=== PATIENT | female | born 1955 | race African-American/Black ===

== ENCOUNTER 2018-08-28 13:54 | Inpatient (IN) ==
[2018-08-28] MEDS ORDERED: methylPREDNISolone 125 MG/2 ML VIAL IVP ONE (14:01)
[2018-08-28] MEDS ORDERED: Ipratropium/Albuterol Neb 3 ML IH ONE (14:01)
--- NOTE | 2018-08-28 14:22 | Emergency Department Note ---
Disposition Clinical Impression: COPD exacerbation, Flash pulmonary edema, Pleural effusion Disposition: Admitted As Inpatient Condition: Good Forms: ED Satisfaction Letter SOB HPI - General Chief Complaint: ED Shortness of Breath/Dyspnea Stated Complaint: KIMBERLY Time Seen by Provider: 08/28/18 14:04 Source: EMS Mode of arrival: EMS Limitations: no limitations Nursing Notes Reviewed: Yes Vital Signs Reviewed: Yes - History of Present Illness 63-year-old female history of oxygen-dependent COPD wears 2 L continuously who presents to the ER via EMS from urgent care with a complaint of shortness of breath. The patient states she was seen at urgent care Wednesday before last and was diagnosed with bronchitis. She was given a course of doxycycline which she finished. States she never really improved and started to feel worse. She denies any chest pain. She reports some abdominal pain around the epigastric area that radiates in all directions. States that she has had that for months but it feels a little bit worse. She denies a prior history of CAD, DVT or PE. She denies a productive cough at this time although was initially productive week ago. The patient was given 1 DuoNeb treatment in route. She was initially 86% on her home oxygen supplementation. Pt Subjective Complaint: shortness of breath, cough Onset (ago): day(s) Context: recent illness Severity: severe Consistency/Duration: constant Improves with: nothing Worsens with: nothing Known history of: COPD Associated symptoms: Reports: cough, wheezing, abdominal pain. Denies: chest pain, fever, sputum production Treatment prior to arrival: oxygen, bronchodilator Cough present: Yes Cough Description: Involuntary Cough Frequency: Intermittent Sputum production: No Sputum Amount: None - Related Data Home oxygen amount: 2 liters Home Medications Medication Instructions Recorded Confirmed Atorvastatin Calcium [Lipitor] 80 mg PO DAILY 08/31/16 08/31/16 Insulin ASPART [NovoLOG] 5 unit SQ TIDWM 08/31/16 08/31/16 Ipratropium/Albuterol Neb [Duoneb] 3 ml IH Q6HR 08/31/16 08/31/16 Lisinopril-HCTZ 20-12.5 [Prinzide 1 tab PO DAILY 08/31/16 08/31/16 20-12.5] Metformin HCl [Glucophage Xr] 1,500 mg PO QPM 08/31/16 08/31/16 Dapagliflozin Propanediol [Farxiga] 08/28/18 Gabapentin [Neurontin] 300 mg PO TID 08/28/18 08/28/18 HYDROcodone/Acet 5/325 mg [[place] 1 tab PO Q12H PRN 08/28/18 08/28/18 5-325 mg] Insulin DETEMIR [Levemir Flextouch] 08/28/18 Lisinopril-HCTZ 20-12.5 [Prinzide 08/28/18 20-12.5] Umeclidinium Brm/Vilanterol Tr 1 each IH 08/28/18 [Anoro Ellipta 62.5-25 Mcg INH] amLODIPine [Norvasc] 5 mg PO DAILY 08/28/18 08/28/18 Previous Rx's Medication Instructions Recorded Erythromycin OPTH Oint 0.5 inch RIGHT EYE QID 7 Days tube 04/30/17 Loratadine [Allergy Relief] 10 mg PO DAILY #30 tablet 08/09/17 Albuterol Neb [Proventil Neb] 2.5 mg IH Q4HR PRN #12 vial.neb 10/08/17 Omeprazole [PriLOSEC] 40 mg PO DAILY #14 cap 04/27/18 Benzonatate [Tessalon] 200 mg PO TID PRN #30 capsule 08/19/18 Doxycycline 100 mg PO BID #14 capsule 08/19/18 GuaiFENesin ER [Mucinex] 1,200 mg PO BID #20 tbbp.12hr 08/19/18 Allergies Allergy/AdvReac Type Severity Reaction Status Date / Time cephalexin [From Keflex] Allergy Rash Verified 08/19/18 15:48 ciprofloxacin Allergy Itching Verified 08/19/18 15:48 ibuprofen Allergy See Verified 08/19/18 15:48 Comments Penicillins Allergy Rash Verified 08/19/18 15:48 tetanus and diphtheria Allergy Rash Verified 08/19/18 15:48 toxoids [Tetanus&Diphtheria Toxoid] levofloxacin [From Levaquin] AdvReac See Verified 08/19/18 15:48 Comments All systems ED: reviewed and negative except as stated. Constitutional: Denies: fever, chills Cardiovascular: Denies: chest pain Respiratory: Reports: cough, dyspnea. Denies: sputum production Gastrointestinal: Denies: abdominal pain, nausea, vomiting Past Medical History - Past Medical History Attestation: Yes The following information was validated with the patient. 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 - Social History Smoking Status: Never smoker Smokeless Tobacco Status: No Alcohol use: Reports: none Drug use: Reports: none Physical Exam - General Limitations: no limitations General appearance: alert, in no apparent distress - Head Head exam: atraumatic, normocephalic, normal inspection - Eye Eye exam: Present: normal appearance - ENT ENT exam: normal exam - Neck Neck exam: Present: normal inspection - Chest Chest inspection: Present: normal inspection, symmetric chest wall rise - Respiratory Respiratory exam: Present: respiratory distress, wheezes (Diffuse), accessory muscle use, prolonged expiratory phase - Cardiovascular Cardiovascular exam: Present: normal rhythm, tachycardia, normal heart sounds - Abdominal Exam Abdominal exam: Present: soft, tenderness (Mild diffuse abdominal tenderness). Absent: distention, rigidity - Extremities Exam Extremities exam: Present: normal inspection, full ROM - Expanded Upper Extremity Exam Shoulder exam: Present: normal inspection, full ROM Arm exam: Present: normal inspection, full ROM Elbow exam: Present: normal inspection, full ROM Forearm/Wrist exam: Present: normal inspection, full ROM Hand exam: Present: normal inspection, full ROM - Expanded Lower Extremity Exam Hip/Pelvis exam: Present: normal inspection, full ROM Upper leg exam: Present: normal inspection, full ROM Knee exam: Present: normal inspection, full ROM Lower leg exam: Present: normal inspection, full ROM Ankle exam: Present: normal inspection, full ROM Foot/toe exam: Present: normal inspection, full ROM - Skin Skin exam: Present: warm, dry Course Course Narrative: Patient seen and examined. Vital signs reviewed. She is in significant respiratory distress. She is 84% on 2 L. The patient was increased to 4 L with an appropriate response. She has diffuse wheezing. Plan for continue DuoNeb treatments, steroids, EKG, chest x-ray, labs, likely admission for COPD exacerbation. - Reevaluation(s) Reevaluation #1: CTA was obtained given concern for potential PE. This appears negative with evidence of effusions. This was discussed with the patient as well as labs. She appears remarkably better at this time speaking in full sentences. Agreeable with admission. Vital Signs Temperature 98.1 F 08/28/18 13:56 Pulse Rate 100 08/28/18 13:56 Respiratory Rate 24 08/28/18 13:56 Blood Pressure 219/95 08/28/18 13:56 O2 Sat by Pulse Oximetry 92 08/28/18 13:56 Temperature 98.1 F 08/28/18 13:56 Pulse Rate 100 08/28/18 13:56 Respiratory Rate 19 08/28/18 14:20 Blood Pressure 219/95 08/28/18 13:56 O2 Sat by Pulse Oximetry 97 08/28/18 14:20 Oxygen Delivery Oxygen Delivery Nasal Cannula Shortness of Breath/Dyspnea - MDM Narrative Medical decision making narrative: 63-year-old female with history of COPD presents due to worsening shortness of breath and hypoxia found to have COPD exacerbation with bilateral pleural effusions. Differential for this includes early congestive heart failure, pulmonary hypertension or flash pulmonary edema. Her hypertension improved here without intervention. Her EKG is sinus without ischemic findings. CTA is negative for PE. Labs are grossly unremarkable. The patient responded well to DuoNeb treatments and steroids. She was given a dose of Lasix for her pleural effusions as well as Zithromax for COPD exacerbation. She is admitted to the hospitalist for further management. - Lab Data Lab results reviewed: Yes I reviewed the patient's lab results. Result diagrams: 08/28/18 14:06 08/28/18 14:06 Lab Results 08/28/18 08/28/18 08/28/18 Range/Units 14:06 14:06 14:06 WBC 7.5 (4.3-11.1) K/mcL RBC 4.20 (3.82-4.97) M/mcL Hgb 11.0 L (11.5-15.4) g/dL Hct 37.7 (35.3-44.9) % MCV 89.8 (83.0-100.0) fL MCH 26.2 L (28.0-33.3) pg MCHC 29.2 L (31.6-35.5) g/dL RDW 14.6 H (11.5-14.5) % Plt Count 234 (140-400) K/mcL MPV 8.5 L (9.4-12.4) fL Immature Gran % 0.8 (0-4) % Seg Neutrophils % 69.1 % Lymphocytes % 23.5 % Monocytes % 5.2 % Eosinophils % 1.1 % Basophils % 0.3 % Neutrophils # 5.2 (1.6-8.9) K/mcL Lymphocytes # 1.8 (0.6-4.6) K/mcL Monocytes # 0.4 (0.0-1.3) K/mcL Eosinophils # 0.1 (0.0-0.6) K/mcL Basophils # 0.0 (0.0-0.2) K/mcL Platelet Estimate Normal (Normal) Hypochromasia Present A (Not Present) PT 12.3 H (9.4-12.1) Seconds INR 1.1 Sodium 139 (136-145) mEq/L Potassium 4.0 (3.5-5.1) mEq/L Chloride 99 (98-107) mEq/L Carbon Dioxide 32 H (23-29) mEq/L BUN 15 (8-23) mg/dL Creatinine 0.57 L (0.60-1.20) mg/dL Est GFR ( Amer) > 60 (> 60) Est GFR (Non-Af Amer) > 60 (> 60) BUN/Creatinine Ratio 26 (6-26) Glucose 226 H (70-105) mg/dL Calculated Osmolality 296 (280-300) Lactic Acid (0.5-2.2) mmol/L Calcium 9.5 (8.6-10.3) mg/dL Total Bilirubin 0.3 (0.3-1.0) mg/dL Direct Bilirubin 0.1 (0.0-0.2) mg/dL Indirect Bilirubin 0.2 (0.0-1.2) mg/dL AST 28 (13-39) Units/L ALT 30 (7-52) Units/L Alkaline Phosphatase 158 H (34-104) Units/L Troponin I < 0.03 (< 0.04) ng/mL B-Natriuretic Peptide (Less than 100) pg/mL Serum Total Protein 7.2 (6.4-8.9) g/dL Albumin 3.9 (3.5-5.7) g/dL Globulin 3.3 (2.4-3.5) g/dL Albumin/Globulin Ratio 1.2 (1.1-2.2) Lipase 24 (11-82) Units/L 08/28/18 08/28/18 Range/Units 14:06 14:06 WBC (4.3-11.1) K/mcL RBC (3.82-4.97) M/mcL Hgb (11.5-15.4) g/dL Hct (35.3-44.9) % MCV (83.0-100.0) fL MCH (28.0-33.3) pg MCHC (31.6-35.5) g/dL RDW (11.5-14.5) % Plt Count (140-400) K/mcL MPV (9.4-12.4) fL Immature Gran % (0-4) % Seg Neutrophils % % Lymphocytes % % Monocytes % % Eosinophils % % Basophils % % Neutrophils # (1.6-8.9) K/mcL Lymphocytes # (0.6-4.6) K/mcL Monocytes # (0.0-1.3) K/mcL Eosinophils # (0.0-0.6) K/mcL Basophils # (0.0-0.2) K/mcL Platelet Estimate (Normal) Hypochromasia (Not Present) PT (9.4-12.1) Seconds INR Sodium (136-145) mEq/L Potassium (3.5-5.1) mEq/L Chloride (98-107) mEq/L Carbon Dioxide (23-29) mEq/L BUN (8-23) mg/dL Creatinine (0.60-1.20) mg/dL Est GFR ( Amer) (> 60) Est GFR (Non-Af Amer) (> 60) BUN/Creatinine Ratio (6-26) Glucose (70-105) mg/dL Calculated Osmolality (280-300) Lactic Acid 1.8 (0.5-2.2) mmol/L Calcium (8.6-10.3) mg/dL Total Bilirubin (0.3-1.0) mg/dL Direct Bilirubin (0.0-0.2) mg/dL Indirect Bilirubin (0.0-1.2) mg/dL AST (13-39) Units/L ALT (7-52) Units/L Alkaline Phosphatase (34-104) Units/L Troponin I (< 0.04) ng/mL B-Natriuretic Peptide 44 (Less than 100) pg/mL Serum Total Protein (6.4-8.9) g/dL Albumin (3.5-5.7) g/dL Globulin (2.4-3.5) g/dL Albumin/Globulin Ratio (1.1-2.2) Lipase (11-82) Units/L - Radiology Data Radiology results reviewed: Yes I reviewed the patient's radiology results. Chest X-Ray 08/28/18 14:01 IMPRESSION: CHF with interstitial pulmonary edema D/ / Brian Smuner MD / Brian Sumner MD Interpreting Provider: Brian Sumner MD Chest CTA 08/28/18 15:31 IMPRESSION: 1. No acute pulmonary embolism. 2. Interstitial edema with small pleural effusions. D/ / Simeon Soriano MD / Simeon Soriano MD Interpreting Provider: Simeon Soriano MD - EKG Data EKG attestation: Yes I reviewed and interpreted this EKG. EKG results narrative: EKG demonstrates sinus tachycardia with a rate of 100. Normal axis. Normal intervals. Normal R-wave progression. No gross ST elevations or depressions. No acute ischemic findings. No significant changes from previous EKG dated . S.B.AJewell - Nirali.Santy.Pilo Situation: Demographics, MOA Background: Presenting Complaint, Relevant PMH, Meds, & Allergies Assessment: Vital Signs, Course and respsone to treatment, Exam Concerns, Patient/Family Expectation, Pertinant Lab Results Recommendation: Barrier(s) to disposition, Recommendation based on pending studies, treatments, or consults S.BClaudio Report Given to: Dr. Carri Ferro Repor Time: 16:50
--- NOTE | 2018-08-28 14:50 | Emergency Department Note ---
Disposition Clinical Impression: COPD exacerbation, Flash pulmonary edema, Pleural effusion Disposition: Admitted As Inpatient Condition: Good General Adult HPI - General Chief complaint: ED Shortness of Breath/Dyspnea Stated complaint: KIMBERLY Time Seen by Provider: 08/28/18 14:04 Source: EMS Mode of arrival: EMS Limitations: no limitations - History of Present Illness Pain Scale: 0 - Related Data Home Medications Medication Instructions Recorded Confirmed Atorvastatin Calcium [Lipitor] 80 mg PO DAILY 08/31/16 08/28/18 Insulin ASPART [NovoLOG] 18 - 22 unit SQ TIDWM 08/31/16 08/28/18 Ipratropium/Albuterol Neb [Duoneb] 3 ml IH Q6HR PRN 08/31/16 08/28/18 Lisinopril-HCTZ 20-12.5 [Prinzide 1 tab PO DAILY 08/31/16 08/28/18 20-12.5] Metformin HCl [Glucophage Xr] 1,500 mg PO QPM 08/31/16 08/28/18 HYDROcodone/Acet 5/325 mg [[place] 1 tab PO Q12H PRN 08/28/18 08/28/18 5-325 mg] Insulin DETEMIR [Levemir Flextouch] 62 unit SQ BID 08/28/18 08/28/18 Umeclidinium Brm/Vilanterol Tr 1 puff IH DAILY 08/28/18 08/28/18 [Anoro Ellipta 62.5-25 Mcg INH] amLODIPine [Norvasc] 5 mg PO DAILY 08/28/18 08/28/18 Previous Rx's Medication Instructions Recorded Loratadine [Allergy Relief] 10 mg PO DAILY #30 tablet 08/09/17 Omeprazole [PriLOSEC] 40 mg PO DAILY #14 cap 04/27/18 Benzonatate [Tessalon] 200 mg PO TID PRN #30 capsule 08/19/18 GuaiFENesin ER [Mucinex] 1,200 mg PO BID #20 tbbp.12hr 08/19/18 Allergies Allergy/AdvReac Type Severity Reaction Status Date / Time cephalexin [From Keflex] Allergy Rash Verified 08/19/18 15:48 ciprofloxacin Allergy Itching Verified 08/19/18 15:48 ibuprofen Allergy See Verified 08/19/18 15:48 Comments Penicillins Allergy Rash Verified 08/19/18 15:48 tetanus and diphtheria Allergy Rash Verified 08/19/18 15:48 toxoids [Tetanus&Diphtheria Toxoid] levofloxacin [From Levaquin] AdvReac See Verified 08/19/18 15:48 Comments Constitutional: Denies: fever, chills Cardiovascular: Denies: chest pain Respiratory: Reports: cough, dyspnea. 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 - Social History Smoking Status: Never smoker Smokeless Tobacco Status: No Alcohol use: Reports: none Drug use: Reports: none Physical Exam - General Limitations: no limitations General appearance: alert, in no apparent distress Course Vital Signs Temperature 98.1 F 08/28/18 13:56 Pulse Rate 100 08/28/18 13:56 Respiratory Rate 24 08/28/18 13:56 Blood Pressure 219/95 08/28/18 13:56 O2 Sat by Pulse Oximetry 92 08/28/18 13:56 Temperature 98.1 F 08/28/18 13:56 Pulse Rate 96 08/28/18 17:08 Respiratory Rate 18 08/28/18 17:08 Blood Pressure 192/80 08/28/18 17:08 O2 Sat by Pulse Oximetry 92 08/28/18 17:08 Oxygen Delivery Oxygen Delivery Nasal Cannula Medical Decision Making - Lab Data Result diagrams: 08/28/18 14:06 08/28/18 14:06 Lab Results 08/28/18 08/28/18 08/28/18 Range/Units 14:06 14:06 14:06 WBC 7.5 (4.3-11.1) K/mcL RBC 4.20 (3.82-4.97) M/mcL Hgb 11.0 L (11.5-15.4) g/dL Hct 37.7 (35.3-44.9) % MCV 89.8 (83.0-100.0) fL MCH 26.2 L (28.0-33.3) pg MCHC 29.2 L (31.6-35.5) g/dL RDW 14.6 H (11.5-14.5) % Plt Count 234 (140-400) K/mcL MPV 8.5 L (9.4-12.4) fL Immature Gran % 0.8 (0-4) % Seg Neutrophils % 69.1 % Lymphocytes % 23.5 % Monocytes % 5.2 % Eosinophils % 1.1 % Basophils % 0.3 % Neutrophils # 5.2 (1.6-8.9) K/mcL Lymphocytes # 1.8 (0.6-4.6) K/mcL Monocytes # 0.4 (0.0-1.3) K/mcL Eosinophils # 0.1 (0.0-0.6) K/mcL Basophils # 0.0 (0.0-0.2) K/mcL Platelet Estimate Normal (Normal) Hypochromasia Present A (Not Present) PT 12.3 H (9.4-12.1) Seconds INR 1.1 Sodium 139 (136-145) mEq/L Potassium 4.0 (3.5-5.1) mEq/L Chloride 99 (98-107) mEq/L Carbon Dioxide 32 H (23-29) mEq/L BUN 15 (8-23) mg/dL Creatinine 0.57 L (0.60-1.20) mg/dL Est GFR ( Amer) > 60 (> 60) Est GFR (Non-Af Amer) > 60 (> 60) BUN/Creatinine Ratio 26 (6-26) Glucose 226 H (70-105) mg/dL Calculated Osmolality 296 (280-300) Lactic Acid (0.5-2.2) mmol/L Calcium 9.5 (8.6-10.3) mg/dL Total Bilirubin 0.3 (0.3-1.0) mg/dL Direct Bilirubin 0.1 (0.0-0.2) mg/dL Indirect Bilirubin 0.2 (0.0-1.2) mg/dL AST 28 (13-39) Units/L ALT 30 (7-52) Units/L Alkaline Phosphatase 158 H (34-104) Units/L Troponin I < 0.03 (< 0.04) ng/mL B-Natriuretic Peptide (Less than 100) pg/mL Serum Total Protein 7.2 (6.4-8.9) g/dL Albumin 3.9 (3.5-5.7) g/dL Globulin 3.3 (2.4-3.5) g/dL Albumin/Globulin Ratio 1.2 (1.1-2.2) Lipase 24 (11-82) Units/L 08/28/18 08/28/18 Range/Units 14:06 14:06 WBC (4.3-11.1) K/mcL RBC (3.82-4.97) M/mcL Hgb (11.5-15.4) g/dL Hct (35.3-44.9) % MCV (83.0-100.0) fL MCH (28.0-33.3) pg MCHC (31.6-35.5) g/dL RDW (11.5-14.5) % Plt Count (140-400) K/mcL MPV (9.4-12.4) fL Immature Gran % (0-4) % Seg Neutrophils % % Lymphocytes % % Monocytes % % Eosinophils % % Basophils % % Neutrophils # (1.6-8.9) K/mcL Lymphocytes # (0.6-4.6) K/mcL Monocytes # (0.0-1.3) K/mcL Eosinophils # (0.0-0.6) K/mcL Basophils # (0.0-0.2) K/mcL Platelet Estimate (Normal) Hypochromasia (Not Present) PT (9.4-12.1) Seconds INR Sodium (136-145) mEq/L Potassium (3.5-5.1) mEq/L Chloride (98-107) mEq/L Carbon Dioxide (23-29) mEq/L BUN (8-23) mg/dL Creatinine (0.60-1.20) mg/dL Est GFR ( Amer) (> 60) Est GFR (Non-Af Amer) (> 60) BUN/Creatinine Ratio (6-26) Glucose (70-105) mg/dL Calculated Osmolality (280-300) Lactic Acid 1.8 (0.5-2.2) mmol/L Calcium (8.6-10.3) mg/dL Total Bilirubin (0.3-1.0) mg/dL Direct Bilirubin (0.0-0.2) mg/dL Indirect Bilirubin (0.0-1.2) mg/dL AST (13-39) Units/L ALT (7-52) Units/L Alkaline Phosphatase (34-104) Units/L Troponin I (< 0.04) ng/mL B-Natriuretic Peptide 44 (Less than 100) pg/mL Serum Total Protein (6.4-8.9) g/dL Albumin (3.5-5.7) g/dL Globulin (2.4-3.5) g/dL Albumin/Globulin Ratio (1.1-2.2) Lipase (11-82) Units/L Attestation Statement - Attestation Attestation: Resident Attestation: I examined this patient and my medical decision making was reviewed with the Resident Physician. I agree with the documented findings, disposition and treatment plan as described except to the extent set forth below. We independently had [id number] contact with the patient. Resident Dr. Esquivel. Patient with past medical history of COPD, diabetes, hypertension presenting to [facility] for evaluation of shortness of breath. Patient received 1 breathing treatment by EMS and states this did improve her overall symptoms. She does wear home oxygen which she started approximately 2 years ago after initially being treated for COPD exacerbation. COPD was initially diagnosed at that time. She does not have significant smoking history. She states that you she uses albuterol as needed but not scheduled. She has been using it approximately once every day for the last 10 days. Seen approximately 1 week ago and evaluated by urgent care. No reports of wheezing at that time for concern for bronchitis and sinus infection. Treated with doxycycline. Patient states that she was not placed on steroids at this time. The patient presents today with diffuse wheezing and decreased air movement bilaterally. This is after 1 breathing treatment by EMS improvement in symptoms. She will receive further steroids as well has further DuoNeb's. She has been reluctant in the past to take steroids secondary to side effects, however, I have discussed with her the benefits and she is agreeable and seems to understand and willing to take these on a more regular basis. Patient will likely require admission. Please see resident note for further details and disposition.
[2018-08-28 14:55] LABS: Basophils % 0.3 %; Red Cell Distribution Width 14.6 % (11.5-14.5)
[2018-08-28 14:56] LABS: Eosinophils # 0.1 K/mcL (0.0-0.6); Eosinophils % 1.1 %; Hematocrit 37.7 % (35.3-44.9); Immature Granulocytes % 0.8 % (0-4); Lymphocytes # 1.8 K/mcL (0.6-4.6); Lymphocytes % 23.5 %; Mean Corpuscular HGB Conc 29.2 g/dL (31.6-35.5); Mean Corpuscular Hemoglobin 26.2 pg (28.0-33.3); Mean Corpuscular Volume 89.8 fL (83.0-100.0); Mean Platelet Volume 8.5 fL (9.4-12.4); Monocytes # 0.4 K/mcL (0.0-1.3); Monocytes % 5.2 %; Neutrophils # 5.2 K/mcL (1.6-8.9); Platelet Count 234 K/mcL (140-400); Segmented Neutrophils % 69.1 %
[2018-08-28 15:03] LABS: INR 1.1; Prothrombin Time 12.3 Seconds (9.4-12.1)
[2018-08-28 15:22] LABS: Troponin I < 0.03 ng/mL (< 0.04)
[2018-08-28 15:23] LABS: Alanine Aminotransferase 30 Units/L (7-52); Albumin 3.9 g/dL (3.5-5.7); Albumin/Globulin Ratio 1.2 (1.1-2.2); Alkaline Phosphatase 158 Units/L (34-104); Aspartate Amino Transferase 28 Units/L (13-39); BUN/Creatinine Ratio 26 (6-26); Bilirubin,Direct 0.1 mg/dL (0.0-0.2); Bilirubin,Indirect 0.2 mg/dL (0.0-1.2); Bilirubin,Total 0.3 mg/dL (0.3-1.0); Blood Urea Nitrogen 15 mg/dL (8-23); Calcium 9.5 mg/dL (8.6-10.3); Carbon Dioxide 32 mEq/L (23-29); Chloride 99 mEq/L (98-107); Globulin 3.3 g/dL (2.4-3.5); Glucose 226 mg/dL (70-105); Hypochromasia Present (Not Present); Lipase 24 Units/L (11-82); Osmolality,Calculated 296 (280-300); Sodium 139 mEq/L (136-145); Total Protein 7.2 g/dL (6.4-8.9); eGFR For Non-African Americans > 60 (> 60)
[2018-08-28 15:24] LABS: Platelet Estimate Normal (Normal)
[2018-08-28] MEDS ORDERED: Isovue-370 500 ML INFUS..BTL IV ONE (15:31)
[2018-08-28] MEDS ORDERED: Furosemide 40 MG/4 ML VIAL IVP ONE (16:33)
[2018-08-28] MEDS ORDERED: Azithromycin 500 MG in D5% in Water 250 ML IVPB ONE (16:39)
[2018-08-28] MEDS ORDERED: Naloxone 0.4 MG/ML INJ IVP PRN (17:21)
[2018-08-28] MEDS ORDERED: Ipratropium/Albuterol Neb 3 ML IH PRN (17:25)
[2018-08-28] MEDS ORDERED: D5% in Water 1,000 ML IVC PRN (17:27)
[2018-08-28] MEDS ORDERED: *HR* Dextrose 50 % in Water (Syg) 50 ML SYRINGE IVP PRN (17:27)
[2018-08-28] MEDS ORDERED: Dextrose Gel 15 GM/37.5 ML TUBE PO PRN ×2 (17:27)
[2018-08-28] MEDS ORDERED: *HR* HYDROcodone/Acet 5/325 mg TABLET PO PRN (17:31)
--- NOTE | 2018-08-28 17:44 | Internal Med History&Physical ---
Date of Encounter: 08/28/18 Time of Encounter: 17:00 Internal Medicine - H&P: HPI Chief complaint: SOB Admitted From: Home Plans for Post Hospital Care: Home History of present illness: Ms. Washburn is a 63 year old female present to the emergency room for shortness of breath. Past medical history is significant for diabetes, COPD on home oxygen, morbid obesity, hypertension, CHF, hyperlipidemia, CARMEN on CPAP. Patient said she started to have shortness of breath since 8 days ago, with cough. Patient has small amount of yellowish sputum with the cough. With mild runny nose. Patient denies a fever, denies nausea, denies chest pain or diaphoresis. Patient feels she has increased belly girth and has increased 5-7 pounds over the last the mouth. Patient denies leg swelling. The shortness of breath is gradually getting worse and patient presented to ER with severe respiratory distress, cannot talk, wheezing. She was treated with steroids and nebulizer, her symptoms has improved after treatment. Patient also was found BP high at over 200 in the emergency room, which improved after breathing treatment. Patient has history of hypertension on medications, states she is compliant with medication but not monitor her BP regularly at home because her BP machine is broken. In the emergency room, chest x-ray and CT shows pulmonary edema. Patient also was given Lasix. Past Med Surg Social Fam HX - Past Medical History Medical history: COPD, diabetes, hypertension Additional medical history: sciatica, osteoarthritis Psychiatric history: anxiety, depression - Past Surgical History Surgical History: cholecystectomy Additional surgical history: tubal ligation, "removed fatty cyst" - Social History Smoking Status: Never smoker Smokeless Tobacco Status: No Alcohol use: none Drug use: none - Family History Mother Family Member Ethnicity: Non- Living Status: Still Living Hx Family Cardiac Disorders: Yes (Stroke, HTN, HLD) Hx Family Respiratory Disorders: No Hx Family Cancer: Yes (Breast Cancer) Hx Family GI Disorders: No Hx Family Endocrine Disorder: Yes (DM Type 2) Hx Family Neuromuscular Disorders: No Hx Family Neurologic Disorders: Yes (Stoke, Dementia) Hx Family HEENT Disorders: No Hx Family Autoimmune Disorders: Yes (Seasonal Allergies) Internal Medicine - H&P: Meds Atorvastatin Calcium [Lipitor] 80 mg PO DAILY 08/31/16 [History] Insulin ASPART [NovoLOG] 18 - 22 unit SQ TIDWM 08/31/16 [History] Ipratropium/Albuterol Neb [Duoneb] 3 ml IH Q6HR PRN 08/31/16 [History] Lisinopril-HCTZ 20-12.5 [Prinzide 20-12.5] 1 tab PO DAILY 08/31/16 [History] Metformin HCl [Glucophage Xr] 1,500 mg PO QPM 08/31/16 [History] Loratadine [Allergy Relief] 10 mg PO DAILY #30 tablet 08/09/17 [Rx] Omeprazole [PriLOSEC] 40 mg PO DAILY #14 cap 04/27/18 [Rx] Benzonatate [Tessalon] 200 mg PO TID PRN #30 capsule 08/19/18 [Rx] GuaiFENesin ER [Mucinex] 1,200 mg PO BID #20 tbbp.12hr 08/19/18 [Rx] HYDROcodone/Acet 5/325 mg [[place] 5-325 mg] 1 tab PO Q12H PRN 08/28/18 [History] Insulin DETEMIR [Levemir Flextouch] 62 unit SQ BID 08/28/18 [History] Umeclidinium Brm/Vilanterol Tr [Anoro Ellipta 62.5-25 Mcg INH] 1 puff IH DAILY 08/28/18 [History] amLODIPine [Norvasc] 5 mg PO DAILY 08/28/18 [History] 3 Allergy/AdvReac Type Severity Reaction Status Date / Time cephalexin [From Keflex] Allergy Rash Verified 08/19/18 15:48 ciprofloxacin Allergy Itching Verified 08/19/18 15:48 ibuprofen Allergy See Verified 08/19/18 15:48 Comments Penicillins Allergy Rash Verified 08/19/18 15:48 tetanus and diphtheria Allergy Rash Verified 08/19/18 15:48 toxoids [Tetanus&Diphtheria Toxoid] levofloxacin [From Levaquin] AdvReac See Verified 08/19/18 15:48 Comments All Systems PM: A 10-system review of systems was performed and is negative for pertinent findings except as documented above in the HPI. - Constitutional Vitals: Temp Pulse Resp BP Pulse Ox 98.1 F 96 18 192/80 92 08/28/18 13:56 08/28/18 17:08 08/28/18 17:08 08/28/18 17:08 08/28/18 17:08 General appearance: Present: A&O X 3, morbidly obese, no acute distress, answers questions appropriately Exam: in NAD - Head Head exam: Present: atraumatic, normocephalic - Eye Eye exam: Present: PERRL, conjuntiva pink, sclera anicteric Pupils: Present: PERRL - Neck Neck exam general surgery: Present: supple, trachea midline. Absent: lymphadenopathy - Respiratory Respiratory exam: Present: CTAB, wheezes (scattered wheezes bilaterally on the lung base). Absent: accessory muscle use, rales, rhonchi - Cardiovascular Cardiovascular exam: Present: RRR, +S1, +S2, tachycardia. Absent: diastolic murmur, gallop, rubs, systolic murmur - GI/Abdominal GI/Abdominal exam: Present: distended, normal bowel sounds, soft, no peritoneal signs. Absent: tenderness - Extremities Exam Extremities exam: Present: warm, radial pulses palpable and symmetrical. Absent : calf tenderness, cyanotic, pedal edema - Neurological Exam Neurological exam: Present: CN II-XII intact, oriented X3, no focal deficits. Absent: pronater drift, facial droop, speech deficit - Skin Skin exam: Present: dry, intact Internal Med - H&P Results - Labs CBC & Chem 7: 08/28/18 14:06 08/28/18 14:06 - Assessment and plan (1) Hypertensive urgency Current Visit: Yes Status: Acute Assessment and plan: Patient to present with high BP, possibly due to acute respiratory distress. Improved now. - Continue home hypertensive medication. Increase amlodipine to 10 mg daily. - Hydralazine IV when necessary (2) DVT prophylaxis Current Visit: Yes Status: Acute Assessment and plan: Heparin SC (3) CARMEN (obstructive sleep apnea) Current Visit: Yes Status: Acute Assessment and plan: Cont CPAP at night. Patient is not compliant with CPAP at home (4) Morbid obesity Current Visit: Yes Status: Acute Assessment and plan: Need lifestyle modification as outpatient (5) COPD exacerbation Current Visit: Yes Status: Acute Assessment and plan: Patient has cough with progressive increased shortness of breath. History of COPD on home oxygen. History of smoking which patient quit 2 years ago. Patient's symptoms improved after nebulizer and steroid treatment. Consider COPD exacerbation. - Continue DuoNeb and steroids - Continue home medication Anoro IH - Oxygen supportive treatment - Closely monitor patient - Check Flu test as patient did not receive flu shot yet (6) Congestive heart failure Current Visit: No Status: Suspected Assessment and plan: History of CHF. Chest x-ray and CT shows pulmonary edema with mild pleural effusion. Increased belly girth and BW. CHF may also contribute to patient's shortness of breath. - Patient is not on any diuretics at home. We will start with low-dose lasix - Strict I/O - Fluid restriction diet - Repeat echo Qualifiers: Qualified Code(s): I50.31 - Acute diastolic (congestive) heart failure (7) Diabetes mellitus Current Visit: No Status: Chronic Assessment and plan: Continue basal and sliding scale insulin coverage Qualifiers: Diabetes mellitus type: type 2 Diabetes mellitus intermediate insulin use: with intermediate use Diabetes mellitus complication status: with hyperglycemia Qualified Code(s): E11.65 - Type 2 diabetes mellitus with hyperglycemia; Z79.4 - care home (current) use of insulin - Time Spent With Patient Total time spent is greater than 50% in coordination of care (as documented) at patient's floor/unit and/or counseling patient: 30 minutes 25 - 35 minutes
[2018-08-28] MEDS ORDERED: amLODIPine 5 MG TABLET PO ONE (17:55)
[2018-08-28] MEDS: Acetaminophen 325 MG TABLET PO PRN (20:59)
[2018-08-28] MEDS ORDERED: Insulin LISPRO 300 UNITS/3 ML VIAL SQ SCH (21:00)
[2018-08-28] MEDS: Insulin DETEMIR 100 UNIT/ML X5UNITS SQ SCH (21:01)
[2018-08-28] MEDS: *HR* Heparin 5,000 UNIT/ML VIAL SQ SCH (21:02)
[2018-08-28] MEDS: Ipratropium/Albuterol Neb 3 ML IH SCH (22:44)
[2018-08-29 03:07] LABS: Basophils % 0.1 %; Hematocrit 35.3 % (35.3-44.9); Hemoglobin 10.5 g/dL (11.5-15.4); Immature Granulocytes % 0.7 % (0-4); Lymphocytes # 0.6 K/mcL (0.6-4.6); Lymphocytes % 6.7 %; Mean Corpuscular HGB Conc 29.7 g/dL (31.6-35.5); Mean Corpuscular Volume 87.4 fL (83.0-100.0); Mean Platelet Volume 8.4 fL (9.4-12.4); Monocytes # 0.1 K/mcL (0.0-1.3); Monocytes % 1.4 %; Neutrophils # 7.9 K/mcL (1.6-8.9); Platelet Count 206 K/mcL (140-400); Red Blood Count 4.04 M/mcL (3.82-4.97); Red Cell Distribution Width 14.5 % (11.5-14.5); Segmented Neutrophils % 91.1 %
[2018-08-29 03:29] LABS: Chol/HDL Ratio 2.5 (0-4.9)
[2018-08-29 03:30] LABS: BUN/Creatinine Ratio 27 (6-26); Blood Urea Nitrogen 20 mg/dL (8-23); Calcium 9.4 mg/dL (8.6-10.3); Carbon Dioxide 32 mEq/L (23-29); Chloride 96 mEq/L (98-107); Glucose 355 mg/dL (70-105); Magnesium 1.9 mg/dL (1.6-2.6); Osmolality,Calculated 303 (280-300); Potassium 4.5 mEq/L (3.5-5.1); Sodium 138 mEq/L (136-145); eGFR For Non-African Americans > 60 (> 60)
[2018-08-29] MEDS: Ipratropium/Albuterol Neb 3 ML IH SCH ×4 (04:03→21:50)
[2018-08-29] MEDS: Acetaminophen 325 MG TABLET PO PRN ×2 (04:12→11:42)
[2018-08-29] MEDS: *HR* Heparin 5,000 UNIT/ML VIAL SQ SCH ×3 (05:29→20:57)
[2018-08-29] MEDS ORDERED: Insulin LISPRO 300 UNITS/3 ML VIAL SQ SCH (07:30)
[2018-08-29 08:15] LABS: Estimated Average Glucose 240 mg/dl
[2018-08-29] MEDS: predniSONE 20 MG TABLET PO SCH (08:18)
[2018-08-29] MEDS: Lisinopril-HCTZ 20-12.5mg TABLET PO SCH (08:18)
[2018-08-29] MEDS: Furosemide 20 MG/2 ML VIAL IVP SCH (08:19)
[2018-08-29] MEDS: Insulin DETEMIR 100 UNIT/ML X5UNITS SQ SCH ×2 (08:19→20:31)
[2018-08-29] MEDS: Insulin LISPRO 300 UNITS/3 ML VIAL SQ SCH ×4 (08:20→20:32)
[2018-08-29] MEDS: amLODIPine 5 MG TABLET PO SCH (08:23)
[2018-08-29] MEDS: Loratadine 10 MG TABLET PO SCH (08:25)
--- NOTE | 2018-08-29 09:10 | Electrocardiograph Report ---
[address] [place], [place] [address] Test Date: 2018-08-28 Pat Name: Mariana Washburn Department: [id number] Room: 3B12 Gender: F [employer] Keeper: : 1955 Requested By: Salvador Esquivel Order Number: [id number] Reading MD: Anne-Marie Garcia Measurements Intervals [place] Rate: 100 P: 70 WI: 167 QRS: 30 QRSD: 94 T: 90 QT: 349 QTc: 451 Interpretive Statements Sinus tachycardia Low voltage, precordial leads Anteroseptal infarct, old Electronically Signed On 08-29-2018 9:08:49 EDT by Anne-Marie Garcia
[2018-08-29] MEDS: (Umeclidinium Brm/Vilanterol Tr [Anoro Ellipta 62.5-2) IH SCH (10:40)
--- NOTE | 2018-08-29 14:33 | Internal Med Progress Note ---
Hospitalist Progress Note - Encounter Date of Encounter: 08/29/18 Time of Encounter: 09:00 - Subjective Interval History: Pt feels better. Less SOB. State she feels like "boweling ball in stomache previous, now much better". - Exam Vitals: Temp Pulse Resp BP Pulse Ox 98.1 F 84 20 156/75 93 08/29/18 11:22 08/29/18 11:22 08/29/18 11:22 08/29/18 11:22 08/29/18 11:22 Exam: AAO x3, in NAD, Morbid obese. HEENT: NC/AT, PERRL Neck: Supple, no JVD Lungs: CTA b/l, no wheezes/crackles Heart: S1S2, RRR Abd: Distended, soft, NT Ext: No pedal edema Neuro: No focal deficit. - Assessment and Plan (1) Hypertensive urgency Current Visit: Yes Status: Acute Assessment and Plan: Patient to present with high BP, possibly due to acute respiratory distress. Improved now. - Continue home hypertensive medication. Increase amlodipine to 10 mg daily. - Hydralazine IV when necessary (2) DVT prophylaxis Current Visit: Yes Status: Acute Assessment and Plan: Heparin SC (3) CARMEN (obstructive sleep apnea) Current Visit: Yes Status: Acute Assessment and Plan: Cont CPAP at night. Patient is not compliant with CPAP at home (4) Morbid obesity Current Visit: Yes Status: Acute Assessment and Plan: Need lifestyle modification as outpatient (5) COPD exacerbation Current Visit: Yes Status: Acute Assessment and Plan: Patient has cough with progressive increased shortness of breath. History of COPD on home oxygen. History of smoking which patient quit 2 years ago. Patient's symptoms improved after nebulizer and steroid treatment. Consider COPD exacerbation. - Continue DuoNeb and steroids - Continue home medication Anoro IH - Oxygen supportive treatment - Closely monitor patient - Flu test negative (6) Congestive heart failure Current Visit: No Status: Suspected Assessment and Plan: History of CHF. Chest x-ray and CT shows pulmonary edema with mild pleural effusion. Increased belly girth and BW. CHF may also contribute to patient's shortness of breath. - Patient is not on any diuretics at home. We will start with low-dose lasix - Strict I/O - Fluid restriction diet - Repeat echo (7) Diabetes mellitus Current Visit: No Status: Chronic Assessment and Plan: Continue basal and sliding scale insulin coverage - Time Spent with Patient Total time spent is greater than 50% in coordination of care (as documented) at patient's floor/unit and/or counseling patient: 30 min 25 - 35 minutes Plan of Care Discussed with: patient Internal Medicine: Result - Labs CBC & Chem 7: 08/29/18 02:55 08/29/18 02:55 Labs: Short CBC 08/29/18 Range/Units 02:55 WBC 8.7 (4.3-11.1) K/mcL Hgb 10.5 L (11.5-15.4) g/dL Hct 35.3 (35.3-44.9) % Plt Count 206 (140-400) K/mcL Neutrophils # 7.9 (1.6-8.9) K/mcL BMP 08/29/18 02:55 Sodium 138 Potassium 4.5 Chloride 96 L Carbon Dioxide 32 H BUN 20 Creatinine 0.73 Glucose 355 H Calcium 9.4 - ABG Interpretation ABG results: PT/INR, D-dimer PT 12.3 Seconds (9.4-12.1) H 08/28/18 14:06 Consult Discharge Plan - Plan Referrals: Ayush Millan MD [Primary Care Provider] - (6) Congestive heart failure Qualifiers: Qualified Code(s): I50.31 - Acute diastolic (congestive) heart failure (7) Diabetes mellitus Qualifiers: Diabetes mellitus type: type 2 Diabetes mellitus snf insulin use: with snf use Diabetes mellitus complication status: with hyperglycemia Qualified Code(s): E11.65 - Type 2 diabetes mellitus with hyperglycemia; Z79.4 - detention (current) use of insulin
[2018-08-30] MEDS: Ipratropium/Albuterol Neb 3 ML IH SCH ×4 (03:31→22:09)
[2018-08-30 05:14] LABS: Basophils % 0.2 %; Eosinophils % 0.3 %; Hemoglobin 10.6 g/dL (11.5-15.4); Immature Granulocytes % 0.6 % (0-4); Lymphocytes # 1.8 K/mcL (0.6-4.6); Lymphocytes % 18.3 %; Mean Corpuscular HGB Conc 30.3 g/dL (31.6-35.5); Mean Corpuscular Hemoglobin 26.2 pg (28.0-33.3); Mean Corpuscular Volume 86.4 fL (83.0-100.0); Mean Platelet Volume 8.5 fL (9.4-12.4); Monocytes # 0.8 K/mcL (0.0-1.3); Monocytes % 7.8 %; Platelet Count 229 K/mcL (140-400); Red Blood Count 4.05 M/mcL (3.82-4.97); Red Cell Distribution Width 14.8 % (11.5-14.5); Segmented Neutrophils % 72.8 %
[2018-08-30 05:39] LABS: BUN/Creatinine Ratio 45 (6-26); Blood Urea Nitrogen 31 mg/dL (8-23); Carbon Dioxide 32 mEq/L (23-29); Chloride 97 mEq/L (98-107); Glucose 267 mg/dL (70-105); Osmolality,Calculated 302 (280-300); Potassium 3.9 mEq/L (3.5-5.1); Sodium 138 mEq/L (136-145); eGFR For Non-African Americans > 60 (> 60)
[2018-08-30] MEDS: *HR* Heparin 5,000 UNIT/ML VIAL SQ SCH ×3 (05:47→21:17)
--- NOTE | 2018-08-30 08:56 | Internal Med Progress Note ---
Hospitalist Progress Note - Encounter Date of Encounter: 08/30/18 Time of Encounter: 08:53 - Subjective Interval History: Seen and examined at bedside today, no acute changes overnight. Reports that shortness of breath is improving. Patient now back to baseline O2 requirements at 2 L nasal cannula. - Exam Vitals: Temp Pulse Resp BP Pulse Ox 97.4 F L 63 17 111/63 95 08/30/18 07:04 08/30/18 07:04 08/30/18 07:04 08/30/18 07:04 08/30/18 07:04 Exam: AAO x3, in NAD, Morbidly obese. HEENT: NC/AT, PERRL Neck: Supple, no JVD Lungs: CTA b/l, AP and L no wheezes/crackles Heart: S1S2, RRR Abd: Distended, soft, NT, NABS Ext: No pedal edema, no BLE edema Neuro: No focal deficit. - Assessment and Plan (1) Congestive heart failure Current Visit: No Status: Suspected Assessment and Plan: History of CHF. Chest x-ray and CT shows pulmonary edema with mild pleural effusion. Increased belly girth and BW. CHF may also contribute to patient's shortness of breath. - Patient is not on any diuretics at home. We will start with low-dose lasix - Strict I/O - Fluid restriction diet - Repeat echo 08/30--presents with shortness of breath 8 days, weight gain and abdominal swelling; CT and chest x-ray showing pulmonary edema. Has a history of CHF., Clinically patient appears to have improved and is reporting shortness of breath is resolving. She is currently on baseline O2 requirements at 2 L nasal cannula. Lungs are CTA B/L AP and L, bilateral lower extremity swelling is resolved. Abdominal swelling persists but the patient reports that this has markedly improved during the stay. Echocardiogram pending completion. Depending on results of echo and consider discharge in the morning. We will refrain from discharging today as the patient still 1.5 L positive on the fluid volume and could use additional diuresis. (2) COPD exacerbation Current Visit: Yes Status: Acute Assessment and Plan: Patient has cough with progressive increased shortness of breath. History of COPD on 2L home oxygen. History of smoking which patient quit 2 years ago. Patient's symptoms improved after nebulizer and steroid treatment. Consider COPD exacerbation. - Continue DuoNeb and steroids - Continue home medication Anoro IH - Oxygen supportive treatment - Closely monitor patient - Flu test negative 08/30--clinically, patient appears to be stable and is without shortness of breath. Patient reporting that she feels he is back to baseline and is now on baseline O2 2 L nasal cannula. Lungs CTA B/L AP and L. Continue treatment as stated above. Per my assessment this morning the patient was sleeping she was 87% on 2 L nasal cannula. Continue with CPAP at night, patient provided education regarding CPAP use. She is prescribed a CPAP at home but does not use it. (3) Diabetes mellitus Current Visit: No Status: Chronic Assessment and Plan: History of diabetes, hyperglycemic this morning Per review of blood glucose from days prior her blood glucose appears to be improving today Continue to closely monitor throughout the day and Continue basal and sliding scale insulin coverage Adjust as needed; consider adding prandial dosing should hyperglycemia persist (4) Hypertensive urgency Current Visit: Yes Status: Resolved Assessment and Plan: History of hypertension, sent with hypertensive urgency, possibly due to acute respiratory distress. This is now resolved. - Continue home hypertensive medication. Amlodipine increased to 10 mg daily - Hydralazine IV when necessary (5) CARMEN (obstructive sleep apnea) Current Visit: Yes Status: Acute Assessment and Plan: As above (6) Morbid obesity Current Visit: Yes Status: Acute Assessment and Plan: Discussed weight loss, dietary changes and lifestyle modification (7) DVT prophylaxis Current Visit: Yes Status: Acute Assessment and Plan: Continue Heparin SC - Time Spent with Patient Total time spent is greater than 50% in coordination of care (as documented) at patient's floor/unit and/or counseling patient: less than 15 minutes Plan of Care Discussed with: patient Internal Medicine: Result - Labs CBC & Chem 7: 08/30/18 05:00 08/30/18 05:00 Labs: Short CBC 08/30/18 Range/Units 05:00 WBC 9.6 (4.3-11.1) K/mcL Hgb 10.6 L (11.5-15.4) g/dL Hct 35.0 L (35.3-44.9) % Plt Count 229 (140-400) K/mcL Neutrophils # 7.0 (1.6-8.9) K/mcL BMP 08/30/18 05:00 Sodium 138 Potassium 3.9 Chloride 97 L Carbon Dioxide 32 H BUN 31 H Creatinine 0.69 Glucose 267 H Calcium 10.0 - ABG Interpretation ABG results: PT/INR, D-dimer PT 12.3 Seconds (9.4-12.1) H 08/28/18 14:06 Consult Discharge Plan - Plan Referrals: Ayush Millan MD [Primary Care Provider] - (1) Congestive heart failure Qualifiers: Qualified Code(s): I50.31 - Acute diastolic (congestive) heart failure (3) Diabetes mellitus Qualifiers: Diabetes mellitus type: type 2 Diabetes mellitus superintendent container terminal insulin use: with superintendent container terminal use Diabetes mellitus complication status: with hyperglycemia Qualified Code(s): E11.65 - Type 2 diabetes mellitus with hyperglycemia; Z79.4 - longterm (current) use of insulin
[2018-08-30] MEDS: amLODIPine 5 MG TABLET PO SCH (09:05)
[2018-08-30] MEDS: Loratadine 10 MG TABLET PO SCH (09:06)
[2018-08-30] MEDS: Insulin LISPRO 300 UNITS/3 ML VIAL SQ SCH ×4 (09:07→21:17)
[2018-08-30] MEDS: Furosemide 20 MG/2 ML VIAL IVP SCH (09:07)
[2018-08-30] MEDS: predniSONE 20 MG TABLET PO SCH (09:07)
[2018-08-30] MEDS: Insulin DETEMIR 100 UNIT/ML X5UNITS SQ SCH ×2 (09:18→21:28)
[2018-08-30] MEDS: Lisinopril-HCTZ 20-12.5mg TABLET PO SCH (09:25)
[2018-08-30] MEDS: (Umeclidinium Brm/Vilanterol Tr [Anoro Ellipta 62.5-2) IH SCH ×2 (10:49→11:01)
[2018-08-30] MEDS: Acetaminophen 325 MG TABLET PO PRN (12:14)
[2018-08-31] MEDS: Ipratropium/Albuterol Neb 3 ML IH SCH ×2 (03:40→09:16)
[2018-08-31] MEDS: *HR* Heparin 5,000 UNIT/ML VIAL SQ SCH (05:37)
[2018-08-31 07:36] VITALS: BP 163/69
[2018-08-31] MEDS: Furosemide 20 MG/2 ML VIAL IVP SCH (08:17)
[2018-08-31] MEDS: predniSONE 20 MG TABLET PO SCH (08:18)
[2018-08-31] MEDS: amLODIPine 5 MG TABLET PO SCH (08:18)
[2018-08-31] MEDS: Loratadine 10 MG TABLET PO SCH (08:18)
[2018-08-31] MEDS: Insulin DETEMIR 100 UNIT/ML X5UNITS SQ SCH (08:19)
[2018-08-31] MEDS: Lisinopril-HCTZ 20-12.5mg TABLET PO SCH (08:28)
[2018-08-31] MEDS: Insulin LISPRO 300 UNITS/3 ML VIAL SQ SCH (08:43)
--- NOTE | 2018-08-31 08:54 | Discharge Summary ---
- NOTES TO OUTPATIENT PROVIDER Notes to Outpatient Provider: AE CHF; TTE reveals Mild LVH, and Mild LVDD. Improved with lasix. Not on diuretics at home. Will start low dose lasix at d/ c. Has been given extensive education regarding CHF and lasix use. Please monitor renal function at f/u; no alteration in renal function during stay. Date of Encounter: 08/31/18 Time of Encounter: 08:51 - Discharge Diagnosis (1) Congestive heart failure Priority: Primary Status: Acute Assessment and Plan: 08/31--abdominal swelling continuing to improve, patient's weight is stable and she has a net negative fluid volume of 450 ML. She is without bilateral lower extremity swelling. She is currently on 2 L nasal cannula which is baseline O2 requirements. Lungs are CTA, B/L AP and L. Printout of echocardiogram reveals LVEF 60-65%, normal LV chamber size and function, mild concentric LV hypertrophy , mild LV diastolic dysfunction, grossly normal right ventricular size and function, no valvular abnormalities or dysfunction. She is being discharged with a new prescription for Lasix. Please follow renal function and outpatient follow-up. She is instructed to follow-up with PCP within 1 week of discharge. Educated regarding low sodium diet, 1.5 L fluid restriction, weight monitoring. Provided education on CHF exacerbations and was able to repeat a verbalized understanding. She has been instructed return to the ED should she begin to experience S/SX of fluid overload Qualifiers: Qualified Code(s): I50.31 - Acute diastolic (congestive) heart failure (2) COPD exacerbation Priority: Secondary Status: Acute (3) Diabetes mellitus Priority: Secondary Status: Chronic Qualifiers: Diabetes mellitus type: type 2 Diabetes mellitus shelter insulin use: with shelter use Diabetes mellitus complication status: with hyperglycemia Qualified Code(s): E11.65 - Type 2 diabetes mellitus with hyperglycemia; Z79.4 - long-term (current) use of insulin (4) Hypertensive urgency Priority: Secondary Status: Resolved (5) CARMEN (obstructive sleep apnea) Priority: Secondary Status: Acute Assessment and Plan: Educated on the need to use [facility] as rx; currently she is noncompliant (6) Morbid obesity Priority: Secondary Status: Acute Assessment and Plan: Further discussed lifestyle modifications, including weight loss and exercise (7) DVT prophylaxis Priority: Secondary Status: Acute Hospital course: Ms. Washburn is a 63 year old female admitted with a day history of dyspnea, weight gain, cough. Diagnosis of CHF. Responded favorably to diuretic rx. Swelling, weight and output improving. Uneventful hospital course. On day of d /c abdominal swelling continuing to improve, patient's weight is stable and she has a net negative fluid volume of 450 ML. She is without bilateral lower extremity swelling. She is currently on 2 L nasal cannula which is baseline O2 requirements. Lungs are CTA, B/L AP and L. Printout of echocardiogram reveals LVEF 60-65%, normal LV chamber size and function, mild concentric LV hypertrophy , mild LV diastolic dysfunction, grossly normal right ventricular size and function, no valvular abnormalities or dysfunction. She is being discharged with a new prescription for Lasix. Please follow renal function and outpatient follow-up. She is instructed to follow-up with PCP within 1 week of discharge. Provided education on CHF exacerbations and was able to repeat a verbalized understanding. She has been instructed return to the ED should she begin to experience S/SX of fluid overload Discharge discussed with: patient, nurse - Time Spent with Patient Total time spent providing and/or coordinating discharge services: Less than 30 minutes - Discharge Medications Home Medications: Atorvastatin Calcium [Lipitor] 80 mg PO DAILY 08/31/16 [History] Insulin ASPART [NovoLOG] 18 - 22 unit SQ TIDWM 08/31/16 [History] Ipratropium/Albuterol Neb [Duoneb] 3 ml IH Q6HR PRN 08/31/16 [History] Lisinopril-HCTZ 20-12.5 [Prinzide 20-12.5] 1 tab PO DAILY 08/31/16 [History] Metformin HCl [Glucophage Xr] 1,500 mg PO QPM 08/31/16 [History] Loratadine [Allergy Relief] 10 mg PO DAILY #30 tablet 08/09/17 [Rx] Omeprazole [PriLOSEC] 40 mg PO DAILY #14 cap 04/27/18 [Rx] Benzonatate [Tessalon] 200 mg PO TID PRN #30 capsule 08/19/18 [Rx] GuaiFENesin ER [Mucinex] 1,200 mg PO BID #20 tbbp.12hr 08/19/18 [Rx] HYDROcodone/Acet 5/325 mg [[place] 5-325 mg] 1 tab PO Q12H PRN 08/28/18 [History] Insulin DETEMIR [Levemir Flextouch] 62 unit SQ BID 08/28/18 [History] Umeclidinium Brm/Vilanterol Tr [Anoro Ellipta 62.5-25 Mcg INH] 1 puff IH DAILY 08/28/18 [History] amLODIPine [Norvasc] 5 mg PO DAILY 08/28/18 [History] Furosemide [Lasix] 20 mg PO DAILY 30 Days #30 tablet 08/31/18 [Rx] Allergies/Adverse Reactions: 3 Allergy/AdvReac Type Severity Reaction Status Date / Time cephalexin [From Keflex] Allergy Rash Verified 08/19/18 15:48 ciprofloxacin Allergy Itching Verified 08/19/18 15:48 ibuprofen Allergy See Verified 08/19/18 15:48 Comments Penicillins Allergy Rash Verified 08/19/18 15:48 tetanus and diphtheria Allergy Rash Verified 08/19/18 15:48 toxoids [Tetanus&Diphtheria Toxoid] levofloxacin [From Levaquin] AdvReac See Verified 08/19/18 15:48 Comments Date of admission: 08/28/18 17:44 Primary care physician: Ayush Millan MD Consults: 08/29/18 07:30 Consult to Nurse Navigator [CONS] Routine Comment: CHF,COPD Discharging clinician: Keith Colmenares Anticipated date of discharge: 08/31/18 - Constitutional Vitals: Temp Pulse Resp BP Pulse Ox 97.5 F L 76 16 163/69 95 08/31/18 07:32 08/31/18 07:32 08/31/18 07:32 08/31/18 07:32 08/31/18 07:32 General appearance: Present: A&O X 3, morbidly obese, no acute distress, answers questions appropriately Exam: AAO x3, in NAD, Morbidly obese. HEENT: NC/AT, PERRL Neck: Supple, no JVD Lungs: CTA b/l, AP and L no wheezes/crackles Heart: S1S2, RRR Abd: Distended, soft, NT, NABS Ext: No pedal edema, no BLE edema - Patient Status Disposition: Home, Self-Care Condition: Good Functional capacity at discharge: independent ambulation Overall status at discharge: patient is progressing back to baseline - Discharge Instructions Instructions: Chronic Obstructive Pulmonary Disease (DC), Diabetes Mellitus Type 2 in Adults (DC) Follow Up With: Ayush Millan MD [Primary Care Provider] - Additional Instructions: CHF EDUCATION AND DIETARY RESTRICTIONS - Diet and Activity Activity: increase activity as tolerated, resume usual activities as tolerated, wear oxygen at all times Diet: diabetic diet, low fat, low cholesterol, low salt diet, other (fluid restriction 1.5L)
== END 2018-08-31 11:30 | disposition home or self-care (01) | DRG 291 ==
LOC: EMEROOARM 13:54 → 3BNU 13:54
PROVIDERS: ADMIT Internal Medicine; ATTEND Internal Medicine

== ENCOUNTER 2021-11-20 14:25 | Inpatient (IN) ==
[2021-11-20] MEDS ORDERED: Ipratropium/Albuterol Neb 3 ML IH ONE (15:01)
[2021-11-20 16:35] LABS: Hematocrit 34.5 % (35.3-44.9); Hemoglobin 10.1 g/dL (11.5-15.4); Immature Granulocytes % 0.6 % (0-4); Lymphocytes # 0.9 K/mcL (0.6-4.6); Lymphocytes % 18.3 %; Mean Corpuscular HGB Conc 29.3 g/dL (31.6-35.5); Mean Corpuscular Hemoglobin 26.7 pg (28.0-33.3); Mean Corpuscular Volume 91.3 fL (83.0-100.0); Mean Platelet Volume 8.7 fL (9.4-12.4); Monocytes # 0.5 K/mcL (0.0-1.3); Monocytes % 10.7 %; Neutrophils # 3.5 K/mcL (1.6-8.9); Platelet Count 244 K/mcL (140-400); Red Blood Count 3.78 M/mcL (3.82-4.97); Red Cell Distribution Width 16.6 % (11.5-14.5); Segmented Neutrophils % 70.4 %
[2021-11-20 17:02] LABS: Albumin 3.5 g/dL (3.5-5.7); Albumin/Globulin Ratio 0.9 (1.1-2.2); Bilirubin,Direct 0.1 mg/dL (0.0-0.2); Bilirubin,Indirect 0.3 mg/dL (0.0-1.0); Bilirubin,Total 0.4 mg/dL (0.3-1.0); Calcium 8.9 mg/dL (8.6-10.3); Globulin 3.9 g/dL (2.4-3.5); Potassium 4.4 mEq/L (3.5-5.1); Total Protein 7.4 g/dL (6.4-8.9); Troponin I 0.17 ng/mL (< 0.04)
[2021-11-20 17:10] LABS: Influenza A PCR Negative (Negative); Influenza B PCR Negative (Negative); Resp. Syncytial Virus PCR Negative (Negative)
[2021-11-20 17:11] LABS: SARS-CoV-2 by PCR (In House) Positive (Negative)
[2021-11-20] MEDS ORDERED: *HR* Heparin 5,000 UNIT/ML VIAL IVP PRN ×2 (17:23)
[2021-11-20] MEDS ORDERED: *HR* Heparin 5,000 UNIT/ML VIAL IVP ONE (17:23)
[2021-11-20] MEDS ORDERED: 0.9 % Sodium Chloride 500 ML IVC ONE (17:24)
[2021-11-20] MEDS ORDERED: Naloxone 0.4 MG/ML INJ IVP PRN (17:49)
[2021-11-20] MEDS ORDERED: Dextrose Gel 15 GM/37.5 ML TUBE PO PRN ×2 (17:52)
[2021-11-20] MEDS ORDERED: *HR* Dextrose 50 % in Water (Syg) 50 ML SYRINGE IVP PRN (17:52)
[2021-11-20] MEDS ORDERED: D5% in Water 1,000 ML IVC PRN (17:52)
[2021-11-20] MEDS: Heparin 25,000UNIT/250ML 1/2NS 25,000 UNIT/250 ML IV.SOLN IVC SCH (18:02)
[2021-11-20 18:33] LABS: Amorphous Sediment,Urine Few per hpf (None-Few); Bacteria,Urine Moderate per hpf (None-Few); Bilirubin,Urine Negative (Negative); Blood,Urine Moderate (Negative); Clarity,Urine Turbid (Clear); Color,Urine Yellow (Yellow); Glucose,Urine (UA) Normal (Normal); Hyaline Casts,Urine Few per lpf (None Seen); Ketones,Urine Negative (Negative); Leukocyte Esterase,Urine Large (Negative); Mucus,Urine Few per lpf (None-Few); Nitrite,Urine Positive (Negative); Protein,Urine 50 mg/dL (Neg-Trace); RBC,Urine 0-3 per hpf (0-3); Specific Gravity,Urine 1.017 (1.010-1.025); Squamous Epithelial Cell,Urine Few per hpf (None-Few); Urobilinogen,Urine Normal (Normal); WBC,Urine 15-30 per hpf (0-3)
[2021-11-20] MEDS ORDERED: Insulin LISPRO 300 UNITS/3 ML VIAL SUBQ SCH (21:00)
[2021-11-21] MEDS ORDERED: Acetaminophen 325 MG TABLET PO ONE (04:45)
[2021-11-21] MEDS ORDERED: Furosemide 20 MG/2 ML VIAL IVP ONE (07:07)
[2021-11-21] MEDS ORDERED: Insulin LISPRO 300 UNITS/3 ML VIAL SUBQ SCH (07:30)
[2021-11-21] MEDS ORDERED: Perflutren Lipid Microsphere 1.3 ML in 0.9 % Sodium Chloride 8.7 ML IVP PRN (07:32)
[2021-11-21] MEDS: Ipratropium 1 PUFF INHALER IH SCH ×5 (08:06→23:57)
[2021-11-21 08:47] LABS: Hematocrit 34.8 % (35.3-44.9); Hemoglobin 10.3 g/dL (11.5-15.4); Mean Corpuscular HGB Conc 29.6 g/dL (31.6-35.5); Mean Corpuscular Hemoglobin 27.3 pg (28.0-33.3); Mean Corpuscular Volume 92.3 fL (83.0-100.0); Mean Platelet Volume 8.9 fL (9.4-12.4); Nucleated Red Blood Cells 0.5 /100 WBC (0); Platelet Count 265 K/mcL (140-400); Red Blood Count 3.77 M/mcL (3.82-4.97); Red Cell Distribution Width 16.4 % (11.5-14.5); White Blood Count 4.1 K/mcL (4.3-11.1)
[2021-11-21] MEDS ORDERED: Lisinopril-HCTZ 20-12.5mg TABLET PO SCH (09:00)
[2021-11-21] MEDS ORDERED: Furosemide 20 MG TABLET PO SCH (09:00)
[2021-11-21 09:01] LABS: Calcium 8.6 mg/dL (8.6-10.3); Potassium 4.7 mEq/L (3.5-5.1)
[2021-11-21] MEDS: Aspirin 81 MG TAB.CHEW PO SCH (09:35)
[2021-11-21] MEDS: Fluticasone Propionate Nasal 50 MCG/SPRAY BOTTLE NS SCH (09:40)
[2021-11-21] MEDS: Insulin LISPRO 300 UNITS/3 ML VIAL SUBQ SCH ×3 (11:49→21:11)
[2021-11-21] MEDS ORDERED: 0.9 % Sodium Chloride 500 ML IVC ONE (13:11)
[2021-11-21] MEDS ORDERED: 0.9 % Sodium Chloride 1,000 ML IVC SCH (13:15)
[2021-11-21 14:46] LABS: Lymphocytes # 0.9 K/mcL (0.6-4.6); Monocytes # 0.3 K/mcL (0.0-1.3)
[2021-11-21 14:48] LABS: Platelet Estimate Normal (Normal)
[2021-11-21] MEDS: Heparin 25,000UNIT/250ML 1/2NS 25,000 UNIT/250 ML IV.SOLN IVC SCH (19:18)
[2021-11-21] MEDS: Acetaminophen 325 MG TABLET PO PRN (19:24)
[2021-11-21] MEDS ORDERED: Insulin DETEMIR 100 UNIT/ML X5UNITS SUBQ SCH (21:00)
[2021-11-22 02:17] LABS: Basophils % 0.1 %; Hematocrit 32.5 % (35.3-44.9); Hemoglobin 9.7 g/dL (11.5-15.4); Immature Granulocytes % 0.8 % (0-4); Lymphocytes # 0.8 K/mcL (0.6-4.6); Lymphocytes % 9.9 %; Mean Corpuscular HGB Conc 29.8 g/dL (31.6-35.5); Mean Corpuscular Hemoglobin 27.5 pg (28.0-33.3); Mean Corpuscular Volume 92.1 fL (83.0-100.0); Mean Platelet Volume 9.2 fL (9.4-12.4); Monocytes # 0.6 K/mcL (0.0-1.3); Monocytes % 7.4 %; Neutrophils # 6.3 K/mcL (1.6-8.9); Nucleated Red Blood Cells 0.3 /100 WBC (0); Platelet Count 304 K/mcL (140-400); Red Blood Count 3.53 M/mcL (3.82-4.97); Red Cell Distribution Width 16.1 % (11.5-14.5); Segmented Neutrophils % 81.8 %; White Blood Count 7.7 K/mcL (4.3-11.1)
[2021-11-22 02:33] LABS: Calcium 8.5 mg/dL (8.6-10.3); Potassium 4.3 mEq/L (3.5-5.1)
[2021-11-22] MEDS: Ipratropium 1 PUFF INHALER IH SCH ×6 (04:28→21:11)
[2021-11-22] MEDS: Aspirin 81 MG TAB.CHEW PO SCH (10:20)
[2021-11-22] MEDS: Insulin LISPRO 300 UNITS/3 ML VIAL SUBQ SCH ×5 (10:21→20:53)
[2021-11-22] MEDS: Fluticasone Propionate Nasal 50 MCG/SPRAY BOTTLE NS SCH (10:22)
[2021-11-22] MEDS: Insulin DETEMIR 100 UNIT/ML X5UNITS SUBQ SCH ×2 (10:44→20:54)
[2021-11-23] MEDS: Ipratropium 1 PUFF INHALER IH SCH ×3 (00:11→08:36)
[2021-11-23 03:47] LABS: Basophils % 0.2 %; Hematocrit 32.7 % (35.3-44.9); Hemoglobin 9.9 g/dL (11.5-15.4); Immature Granulocytes % 2.1 % (0-4); Lymphocytes # 0.8 K/mcL (0.6-4.6); Lymphocytes % 8.6 %; Mean Corpuscular HGB Conc 30.3 g/dL (31.6-35.5); Mean Corpuscular Hemoglobin 27.4 pg (28.0-33.3); Mean Corpuscular Volume 90.6 fL (83.0-100.0); Mean Platelet Volume 9.1 fL (9.4-12.4); Monocytes # 0.4 K/mcL (0.0-1.3); Monocytes % 4.9 %; Neutrophils # 7.3 K/mcL (1.6-8.9); Nucleated Red Blood Cells 0.2 /100 WBC (0); Platelet Count 330 K/mcL (140-400); Red Blood Count 3.61 M/mcL (3.82-4.97); Red Cell Distribution Width 15.9 % (11.5-14.5); Segmented Neutrophils % 84.2 %; White Blood Count 8.7 K/mcL (4.3-11.1)
[2021-11-23 04:05] LABS: Lactate Dehydrogenase 392 Units/L (140-271)
[2021-11-23 04:10] LABS: BUN/Creatinine Ratio 44 (6-26); Blood Urea Nitrogen 46 mg/dL (8-23); Calcium 8.7 mg/dL (8.6-10.3); Carbon Dioxide 26 mEq/L (23-29); Chloride 104 mEq/L (98-107); Glucose 301 mg/dL (70-105); Osmolality,Calculated 313 (280-300); Potassium 4.9 mEq/L (3.5-5.1); Sodium 140 mEq/L (136-145); eGFR For African Americans > 60 (> 60); eGFR For Non-African Americans 53 (> 60)
[2021-11-23 04:23] LABS: Ferritin 1001 ng/mL (10-120)
[2021-11-23] MEDS: *HR* Enoxaparin 40 MG/0.4 ML SYRINGE SQ SCH (06:09)
[2021-11-23] MEDS: Aspirin 81 MG TAB.CHEW PO SCH (09:41)
[2021-11-23] MEDS: Insulin LISPRO 300 UNITS/3 ML VIAL SUBQ SCH ×7 (09:42→20:26)
[2021-11-23] MEDS: Fluticasone Propionate Nasal 50 MCG/SPRAY BOTTLE NS SCH (09:45)
[2021-11-23] MEDS: Insulin DETEMIR 100 UNIT/ML X5UNITS SUBQ SCH ×2 (09:45→20:25)
[2021-11-23] MEDS: Acetaminophen 325 MG TABLET PO PRN (09:49)
[2021-11-23] MEDS: Furosemide 20 MG/2 ML VIAL IVP SCH ×2 (12:03→16:12)
[2021-11-24 01:42] LABS: Basophils % 0.6 %; Hematocrit 32.4 % (35.3-44.9); Hemoglobin 9.9 g/dL (11.5-15.4); Immature Granulocytes % 5.1 % (0-4); Lymphocytes # 0.7 K/mcL (0.6-4.6); Mean Corpuscular HGB Conc 30.6 g/dL (31.6-35.5); Mean Corpuscular Hemoglobin 27.4 pg (28.0-33.3); Mean Corpuscular Volume 89.8 fL (83.0-100.0); Mean Platelet Volume 8.9 fL (9.4-12.4); Monocytes # 0.5 K/mcL (0.0-1.3); Monocytes % 7.3 %; Nucleated Red Blood Cells 0.5 /100 WBC (0); Platelet Count 304 K/mcL (140-400); Red Blood Count 3.61 M/mcL (3.82-4.97); Red Cell Distribution Width 15.4 % (11.5-14.5); White Blood Count 6.5 K/mcL (4.3-11.1)
[2021-11-24 02:05] LABS: Calcium 8.9 mg/dL (8.6-10.3); Magnesium 2.3 mg/dL (1.6-2.6); Phosphorous 2.7 mg/dL (2.7-4.5); Potassium 4.1 mEq/L (3.5-5.1)
[2021-11-24 02:19] LABS: Platelet Estimate Normal (Normal); Reactive Lymphocytes Present (Not Present); Toxic Granulation Present (Not Present)
[2021-11-24] MEDS: *HR* Enoxaparin 40 MG/0.4 ML SYRINGE SQ SCH (05:12)
[2021-11-24] MEDS: Aspirin 81 MG TAB.CHEW PO SCH (09:35)
[2021-11-24] MEDS: Insulin LISPRO 300 UNITS/3 ML VIAL SUBQ SCH ×4 (09:42→12:34)
[2021-11-24] MEDS: Insulin DETEMIR 100 UNIT/ML X5UNITS SUBQ SCH (09:59)
[2021-11-24] MEDS: Fluticasone Propionate Nasal 50 MCG/SPRAY BOTTLE NS SCH (09:59)
[2021-11-24] MEDS: Furosemide 20 MG/2 ML VIAL IVP SCH (10:00)
[2021-11-24 12:07] VITALS: BP 179/74; PULSE 76; TEMP 97.8; O2SAT 92
[2021-11-24] MEDS ORDERED: cefTRIAXone 1,000 MG in 0.9 % Sodium Chloride Mini Bag 100 ML IVP SCH (14:00)
[2021-11-24] MEDS ORDERED: *HR* Enoxaparin 40 MG/0.4 ML SYRINGE SQ SCH (18:00)
[2021-11-24] MEDS ORDERED: Insulin DETEMIR 100 UNIT/ML X5UNITS SUBQ SCH (21:00)
[2021-11-25] MEDS ORDERED: lisinopriL 20 MG TABLET PO SCH (09:00)
== END 2021-11-24 16:45 | disposition left against medical advice (07) | DRG 177 ==
LOC: EMEROOARM 14:25 → 2ANU 14:25 → SUATTDRO 19:45 → 2ANU 20:15 → SUATTDRO 11-21 13:13
PROVIDERS: ADMIT Internal Medicine; ATTEND Internal Medicine